=== PATIENT | female | born 1940 | race Hispanic/Latino ===

== ENCOUNTER 2024-08-15 06:05 | Day surgery (SDC) | payer OTHER, MEDICARE ==
[2024-08-13 11:15] VITALS: BP 115/57; PULSE 66; RESP 18; TEMP 98.1
[2024-08-13 11:24] LABS: BASOPHILS # (AUTO) 0.05 K/uL (0.00-0.20); BASOPHILS % (AUTO) 0.5 % (0.0-5.0); EOSINOPHILS # (AUTO) 0.13 K/uL (0.00-0.70); EOSINOPHILS % (AUTO) 1.3 % (0.0-8.0); HEMATOCRIT 39.1 % (36-48); IMMATURE GRANULOCYTE ABSOLUTE 0.06 K/uL (0-1); LYMPHOCYTES # (AUTO) 2.6 K/uL (1.0-4.8); MEAN CORPUSCULAR HEMOGLOBIN 29.3 pg (27.0-33.0); MEAN CORPUSCULAR HGB CONC 32.5 g/dL (32.0-36.0); MEAN CORPUSCULAR VOLUME 90.3 fL (79-99); MONOCYTES % (AUTO) 9.3 % (3.0-13.0); NEUTROPHILS # (AUTO) 6.6 K/uL (1.8-7.7); NEUTROPHILS % (AUTO) 63.3 % (40.0-77.0); PLATELET COUNT (AUTO) 266 K/uL (130-400); RED BLOOD CELL COUNT(AUTO) 4.33 MIL/uL (4.00-5.50); RED CELL DISTRIBUTION WIDTH 12.9 % (11.0-15.5); WHITE BLOOD COUNT (AUTO) 10.4 K/uL (4.8-10.8)
[2024-08-13 11:26] LABS: CREATININE 0.8 mg/dL (0.5-1.0); POTASSIUM 4.2 mmol/L (3.5-5.1)
[2024-08-13 11:34] LABS: INR 0.98 (0.85-1.15); PROTHROMBIN TIME 10.4 SEC (9.6-11.6)
[2024-08-13 11:35] LABS: PARTIAL THROMBOPLASTIN TIME 26.5 SEC (26.3-35.5)
[~2024-08-15] VITALS: Ht 160 cm; Wt 74.8 kg
[2024-08-15] VITALS (13 sets, daily range): BP systolic 124–182; BP diastolic 56–75; PULSE 67–80; RESP 14–18; TEMP 97.3–97.6
[~2024-08-15 06:05] MED LIST: ACET-66 PO; DULO30CA52 PO; GABA300C PO; LEVO75CA6 PO; OMEP20CA12 PO
[2024-08-15] MEDS ORDERED: FAMOTIDINE 20MG VIAL IV ONE (06:35)
[2024-08-15] MEDS ORDERED: acetaMINOPHEN 325 MG TAB ONE (06:35)
[2024-08-15] MEDS: LACTATED RINGERS 1000ML 1,000 ML IV ONE (06:45)
[2024-08-15] MEDS ORDERED: rocuRONium bROMide 10MG/1ML 5ML VL ONE (06:49)
[2024-08-15] MEDS ORDERED: proPOFol 10 MG/ML 20ML VIAL IV ONE (06:49)
[2024-08-15] MEDS ORDERED: LIDOCAINE PF 100MG/5ML (2%) SYRINGE 5ML ONE (06:49)
[2024-08-15] MEDS ORDERED: FENTanyl CITRate PF 50 MCG/1 ML 2ML VIAL ONE (06:50)
[2024-08-15] MEDS ORDERED: EPINEPHrine PF 1MG (1:1,000) 1 MG/ML AMP ONE ×2 (06:57→07:14)
[2024-08-15] MEDS ORDERED: ketaMINE 50MG/ML SYRINGE 50 MG/ML DISP.SYRIN ONE (07:03)
[2024-08-15] MEDS ORDERED: ondanSETRON 4MG INJ ONE (07:18)
[2024-08-15] MEDS ORDERED: dexaMETHasone SOD PHOSPHATE 10MG/ML 1ML VIAL ONE (07:18)
[2024-08-15] MEDS: ceFAZolin SODIUM 2 GM VIAL ONE (07:30)
[2024-08-15] MEDS: BUPIvacaine/PF 0.25% 30ML VIAL IJ ONE (07:57)
[2024-08-15] MEDS ORDERED: NEOSTIGMINE METHYLSULFATE 1MG/ML IV ONE (08:17)
[2024-08-15] MEDS ORDERED: GLYCOPYRROLATE 0.2 MG/ML 5 ML VIAL ONE (08:17)
[2024-08-15] MEDS ORDERED: ACET-2079 PO (08:32)
--- NOTE | 2024-08-15 08:39 | OP ---
Operative Note: DATE OF PROCEDURE: 08/15/24 SURGEON: ALBER APARICIO MD CARE TECHNICIAN: Jackeline Bergman ANESTHESIA: General ANESTHESIOLOGIST/AGRICULTURAL TECHNICIAN: Cheryl Monsalve PREOPERATIVE DIAGNOSIS: Painful right total knee arthroplasty, right patellar clunk syndrome POSTOPERATIVE DIAGNOSIS: Painful right total knee arthroplasty, right patellar clunk syndrome PROCEDURE: Right knee arthroscopy with synovectomy ESTIMATED BLOOD LOSS: 2 cc INDICATIONS: 84-year-old female status post right total knee arthroplasty in the past with Dr. Jorge sanders. Patient presented to my clinic complaining of painful popping in the knee when she extended her leg. We discussed that she has a patellar clunk which is related to the design of the implant that he used. We discussed that when it becomes painful is when we have concern for soft tissue getting trapped. After discussion of the risks, benefits, and alternatives, the patient voluntarily agreed to undergo the aforementioned procedure. DESCRIPTION OF PROCEDURE: Patient was properly identified in the preoperative holding area. Surgical site marking was verified and surgery consent reviewed. The patient was then taken to the operating room and placed in supine position on the OR table. After induction of general anesthesia, preoperative antibiotics were given, all bony prominences were well-padded, and a well padded tourniquet was applied but not inflated at this time. The right lower extremity was then prepped and draped in usual sterile fashion. Surgical timeout was done verifying correct surgery, side, site, and location to be performed. We then began the procedure by exsanguinating limb was then Esmarch and inflating the tourniquet to 250 mm Hg. We then made a standard anterolateral portal and noted there to be significant scar tissue in this region. We inserted the arthroscope through our anterolateral portal and then used a spinal needle to localize placement for our anteromedial portal. We then performed the arthroscopy looking for hypertrophic synovium scar tissue that could be problematic. We noticed significant hypertrophic scar tissue along the anterior lateral aspect of the knee as well as around the superior and inferior aspect of the patella. We then used our shaver device to shave the hypertrophic synovial tissue in these regions. We swapped our portals to allow better access to the superior and inferior lateral sides with the shaver device. Once we had performed our synovectomy we then took the knee through a range motion with the camera in place to observe for any remaining problematic synovial tissue. We were unable to appreciate any further problematic scar or synovial tissue. We then thoroughly irrigated out the joint and using suction removed all of the fluid from the joint. We removed the arthroscope and shaver device from the joint. We then injected the local into the subcutaneous tissues around the portal sites as well as intra-articularly within the knee. Our wounds were then closed using 3-0 nylon in interrupted fashion. Sterile soft dressing was applied with Xeroform, 4x4s, ABD, and an Kole wrap. The tourniquet was then deflated. The patient was awakened from anesthesia and taken to recovery room in stable condition. ALBER APARICIO MD Aug 15, 2024 08:39
[2024-08-15] MEDS: FENTanyl CITRate PF 50 MCG/1 ML 2ML VIAL ONE (08:41)
--- NOTE | 2024-08-15 10:00 | NUR ---
Full and complete discharge instructions given to Patient and Family both verbally and in writing. All questions answered. Tolerating PO fluids well. Voiced understanding to SURGICAL procedure and follow up. Neurovascularly intact. Crutch training completed. Patient returned demonstration. Daughter at bedside appearing supportive. Dressing clean and dry. PIV removed with catheter tip intact. W\C to POV with Family to home.
== END 2024-08-15 09:53 | disposition home or self-care (01) ==
LOC: DAH 06:05
PROVIDERS: ATTEND Student in an Organized Health Care Education/Training Program
DX: T84.84XA Pain due to internal orthopedic prosthetic devices, implants and grafts, initial encounter (principal); Y83.8 Other surgical procedures as the cause of abnormal reaction of the patient, or of later complication, without mention of misadventure at the time of the procedure; Y92.89 Other specified places as the place of occurrence of the external cause; M25.861 Other specified joint disorders, right knee; E03.9 Hypothyroidism, unspecified; K21.9 Gastro-esophageal reflux disease without esophagitis; Z79.01 Long term (current) use of anticoagulants; Z79.890 Hormone replacement therapy; Z83.3 Family history of diabetes mellitus; Z88.0 Allergy status to penicillin; Z79.899 Other long term (current) drug therapy; Z98.890 Other specified postprocedural states
CPT/HCPCS: 29876; 80048; 85025; 85610; 85730; 36415; A4663; J7120 ×2; A4649 ×2; J3490 ×4; J3010 ×2; J1100; J0665; J2003; J0171 ×2; J2704; J2405; J2710; J0690; A6223; A4930; A5120; A4215; A4223; A4222; A4221; A6450